=== PATIENT | male | born 1955 | race Caucasian/White ===

== ENCOUNTER 2017-01-29 07:23 | Day surgery (SDC) | payer SELFPAY ==
[~2017-01-29] VITALS: Ht 167.6 cm; Wt 68.3 kg
[2017-01-29 09:05] VITALS: Ht 167.6 cm; Wt 68.3 kg
[2017-01-29 09:06] VITALS: BP 112/60; PULSE 62; RESP 16
[2017-01-29] MEDS ORDERED: FENTAnyl 50 MCG/ML VIAL ONE (09:11)
[2017-01-29] MEDS ORDERED: DIPHENHYDRAMINE 50 MG INJ ONE (09:11)
[2017-01-29] MEDS ORDERED: LIDOCAINE 1% (MDV) 20 ML INJ ONE (09:11)
--- NOTE | 2017-01-29 10:50 | RADRPT ---
PROCEDURE: CT guided liver biopsy. CLINICAL INDICATION: History of colon cancer with multiple liver masses. TECHNIQUE: Informed consent was obtained. The procedure, risks, benefits, complications and alternatives were e xplained to the patient. Risks including bleeding and infection were explained. The patient understo od and was willing to proceed. A procedural pause was performed. The patient's name, date of , and procedure to be performed were verified. One or more of the following dose reduction techniqu es were used: Automated exposure control, adjustment of the mA and/or kV according to patient size, use of iterative reconstruction technique. Using local anesthetic, sterile technique and CT guidance, a 20-gauge automated core biopsy needle w as used to biopsy the mass in the right hepatic lobe anteriorly. Multiple passes were made. [place] te tissue was obtained according to the pathologist present during the procedure. The needle was re moved. A postprocedural scan was performed. A dressing was applied. The patient tolerated procedure well. COMPARISON: None. FINDINGS: Initial images demonstrate the tip of the needle at the edge of the lesion in question. Post biopsy images demonstrate no immediate complication. IMPRESSION: 1. Successful CT guided biopsy of liver mass. RPTAT: QQ .Garett Lam MD, Date Time Electronically viewed and signed by .Garett Lam MD, on 01/29/2017 10:50 .R/
[2017-01-29 11:37] VITALS: BP 125/77; PULSE 52; RESP 16
[2017-01-29 12:00] VITALS: BP 119/68; PULSE 58; RESP 16
[2017-01-29 12:30] VITALS: BP 106/68; PULSE 68; RESP 17
== END 2017-01-29 13:00 | disposition home or self-care (01) ==
LOC: SDS 07:23
PROVIDERS: ATTEND Internal Medicine
DX: C18.9 Malignant neoplasm of colon, unspecified (principal); C78.7 Secondary malignant neoplasm of liver and intrahepatic bile duct; E11.9 Type 2 diabetes mellitus without complications
CPT/HCPCS: 47000; 77012; 82962; 88307; 88313; 88341; 88342; J1200; J3010